=== PATIENT | female | born 1985 ===

== ENCOUNTER → 2018-11-08 | Outpatient (CLI) | payer OTHER ==
[~2018-11-08] MED LIST: LEVO1TAB68 PO
[2018-11-08 12:04] LABS: PLATELET COUNT, AUTOMATED 222 K/uL (150-450)
[2018-11-08 13:24] LABS: LDL CHOLESTEROL 83 mg/dl
== END ==
LOC: LAB 11:14
PROVIDERS: ATTEND Internal Medicine
DX: Z30.011 Encounter for initial prescription of contraceptive pills (principal)
CPT/HCPCS: 36415; 82040; 82247; 82310; 82374; 82435; 82465; 82565; 82947; 83718; 84075; 84132; 84155; 84295; 84443; 84450; 84460; 84478; 84520; 84702; 85025